=== PATIENT | male | born 1955 | race Caucasian/White ===

== ENCOUNTER → 2021-02-27 | Outpatient (CLI) | payer OTHER ==
[~2021-02-27] MED LIST: ISOVUE-370 76% 100ML VIAL As Ordered ONE
--- NOTE | 2021-02-27 09:14 | REP ---
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 TECHNIQUE: Standard helical technique after the intravenous administration of 100 cc Isovue 370 FINDINGS: There is a borderline to mildly enlarged right hilar lymph node. The mediastinal and left hilar lymph nodes are unremarkable. There are no pleural or pericardial effusions. The imaged upper abdomen is within normal limits. The imaged osseous structures are within normal limits. Evaluation of the lung moura shows evidence of biapical pleuroparenchymal scarring. There is lung field hyperexpansion with emphysematous changes having apical predominance. There is mild cylindrical bronchiectasis. There is an incidental calcified granuloma in the right upper lobe and in the right lower lobe. There are a few calcified right hilar lymph nodes also seen incidentally. There is a small amount of soft tissue density seen in the trachea on the right likely mucoid debris. IMPRESSION: 1. Chronic lung field changes as described above. 2. Borderline to mildly enlarged right hilar lymph node. There are no priors for comparison. Follow-up is suggested. 3. Incidental calcified granulomas. 4. Other findings as described above. <Electronically signed by Дмитрий Benitez > 02/27/21 [id number]
== END ==
LOC: M RAD 08:22
PROVIDERS: ATTEND Internal Medicine Pulmonary Disease
DX: Z57.39 Occupational exposure to other air contaminants (principal); R59.0 Localized enlarged lymph nodes; J43.9 Emphysema, unspecified; J47.9 Bronchiectasis, uncomplicated; J84.10 Pulmonary fibrosis, unspecified
CPT/HCPCS: 71260; Q9967

== ENCOUNTER → 2021-06-28 | Outpatient (CLI) | payer OTHER, MEDICARE ==
[2021-06-28 13:57] LABS: BLOOD UREA NITROGEN 19 MG/DL (7-18); CALCIUM LEVEL 9.6 MG/DL (8.8-10.2); CARBON DIOXIDE LEVEL 27 MEQ/L (21-32); CHLORIDE LEVEL 106 MEQ/L (98-107); CREATININE FOR GFR 1.09 MG/DL (0.70-1.30); GLOMERULAR FILTRATION RATE > 60.0 (>49); GLUCOSE, FASTING 97 MG/DL (70-100); POTASSIUM SERUM 4.3 MEQ/L (3.5-5.1); SODIUM LEVEL 139 MEQ/L (136-145)
== END ==
LOC: M PLALAB 10:44
PROVIDERS: ATTEND Physician Assistant
DX: I10 Essential (primary) hypertension (principal)

== ENCOUNTER → 2021-07-15 | Outpatient (REF) | payer OTHER ==
[2021-07-15 16:44] LABS: BASO # 0.1 10^3/uL (0.0-0.2); BASO % 1.5 % (0.0-1.0); EOS # 0.1 10^3/uL (0.0-0.5); EOS % 1.1 % (0.0-3.0); HEMOGLOBIN 16.6 g/dl (13.5-17.5); LYMPH # 1.4 10^3/uL (1.5-5.0); LYMPH % 18.6 % (24.0-44.0); MEAN CORPUSCULAR HEMOGLOBIN 30.4 pg (27.0-33.0); MEAN CORPUSCULAR HGB CONC 33.9 g/dl (32.0-36.5); MEAN CORPUSCULAR VOLUME 89.7 fl (80.0-96.0); MONO # 0.7 10^3/uL (0.0-0.8); MONO % 9.2 % (2.0-8.0); NEUTROPHILS # 5.1 10^3/uL (1.5-8.5); NEUTROPHILS % 69.3 % (36.0-66.0); PLATELET COUNT, AUTOMATED 253 10^3/uL (150-450); RED BLOOD COUNT 5.46 10^6/uL (4.30-6.10); WHITE BLOOD COUNT 7.3 10^3/uL (4.0-10.0)
[2021-07-15 17:13] LABS: CHOLESTEROL RISK RATIO 4.086 (<5)
== END ==
LOC: M SFHCCLAY 10:34
PROVIDERS: ATTEND Family Medicine
DX: Z13.220 Encounter for screening for lipoid disorders (principal); Z12.5 Encounter for screening for malignant neoplasm of prostate; Z13.0 Encounter for screening for diseases of the blood and blood-forming organs and certain disorders involving the immune mechanism
CPT/HCPCS: 80061; 83540; 85025; G0103

== ENCOUNTER → 2022-07-18 | Outpatient (REF) | payer MEDICARE ==
[2022-07-18 18:00] LABS: BASO # 0.1 10^3/uL (0.0-0.2); BASO % 1.5 % (0.0-1.0); EOS # 0.1 10^3/uL (0.0-0.5); EOS % 1.6 % (0.0-3.0); HEMATOCRIT 46.7 % (42.0-52.0); HEMOGLOBIN 15.5 g/dl (13.5-17.5); LYMPH # 1.4 10^3/uL (1.5-5.0); LYMPH % 20.5 % (24.0-44.0); MEAN CORPUSCULAR HEMOGLOBIN 30.2 pg (27.0-33.0); MEAN CORPUSCULAR HGB CONC 33.2 g/dl (32.0-36.5); MEAN CORPUSCULAR VOLUME 90.9 fl (80.0-96.0); MONO # 0.6 10^3/uL (0.0-0.8); MONO % 9.2 % (2.0-8.0); NEUTROPHILS # 4.5 10^3/uL (1.5-8.5); NEUTROPHILS % 66.8 % (36.0-66.0); PLATELET COUNT, AUTOMATED 234 10^3/uL (150-450); RED BLOOD COUNT 5.14 10^6/uL (4.30-6.10); WHITE BLOOD COUNT 6.7 10^3/uL (4.0-10.0)
[2022-07-18 19:08] LABS: ALBUMIN 3.9 GM/DL (3.2-5.2); ALT/SGPT 32 U/L (12-78); BILIRUBIN,TOTAL 1.3 MG/DL (0.2-1.0); BLOOD UREA NITROGEN 20 MG/DL (7-18); CALCIUM LEVEL 9.2 MG/DL (8.8-10.2); CARBON DIOXIDE LEVEL 26 MEQ/L (21-32); CHLORIDE LEVEL 104 MEQ/L (98-107); CHOLESTEROL LEVEL 213 MG/DL (<200); CHOLESTEROL RISK RATIO 3.491 (<5); CREATININE FOR GFR 1.08 MG/DL (0.70-1.30); GLOMERULAR FILTRATION RATE > 60.0 (>49); GLUCOSE, FASTING 97 MG/DL (70-100); HDL CHOLESTEROL 61 MG/DL (>40); LDL CHOLESTEROL 127 MG/DL (<100); NON-HDL-C 152 MG/DL; POTASSIUM SERUM 4.2 MEQ/L (3.5-5.1); SODIUM LEVEL 138 MEQ/L (136-145); TOTAL PROTEIN 7.1 GM/DL (6.4-8.2); TRIGLYCERIDES LEVEL 124 MG/DL (<150)
== END ==
LOC: M SFHCCLAY 14:05
PROVIDERS: ATTEND Family Medicine
DX: E78.2 Mixed hyperlipidemia (principal); I50.32 Chronic diastolic (congestive) heart failure; I11.0 Hypertensive heart disease with heart failure

== ENCOUNTER → 2022-12-29 | Outpatient (CLI) | payer OTHER | LOC: M RAD 08:46 | PROVIDERS: ATTEND Internal Medicine Pulmonary Disease | DX: R91.8 Other nonspecific abnormal finding of lung field (principal); Z57.39 Occupational exposure to other air contaminants; J44.9 Chronic obstructive pulmonary disease, unspecified; J84.10 Pulmonary fibrosis, unspecified; I25.10 Atherosclerotic heart disease of native coronary artery without angina pectoris; M41.9 Scoliosis, unspecified ==

== ENCOUNTER → 2023-01-27 | Outpatient (CLI) | payer OTHER ==
[~2023-01-27] MED LIST changes: +ALBU6.7H6 INH; +AMLO1TAB24 PO; +AMLO25TA PO; +IPRA0.00 INH; -ISOVUE-370 76% 100ML VIAL As Ordered ONE; +LOSA100T46 PO; +MELA10CA6 PO; +TREL1AER INH; +VITMTA PO
[2023-01-27 11:20] LABS: PLATELET COUNT, AUTOMATED 255 10^3/uL (150-450)
[2023-01-27 11:29] LABS: INR 0.95; PARTIAL THROMBOPLASTIN TIME 26.4 SECONDS (24.8-34.2); PROTHROMBIN TIME 12.9 SECONDS (12.5-14.5)
== END ==
LOC: M LAB 10:15
PROVIDERS: ATTEND Internal Medicine Pulmonary Disease
DX: R91.8 Other nonspecific abnormal finding of lung field (principal)

== ENCOUNTER 2023-01-28 12:50 | Inpatient (IN) | payer OTHER ==
[2023-01-28] VITALS (24 sets, daily range): BP systolic 114–179; BP diastolic 57–114; O2SAT 91–97
[~2023-01-28] VITALS: Ht 165.1 cm; Wt 65.3 kg
[~2023-01-28 12:50] MED LIST changes: -HOME MED LIST COMPLETE! XX SCH; -IPRA0.00 INH; -KETOROLAC 30 MG/ML 1ML VIAL As Ordered ONE; -LIDOCAINE 1% MDV 20ML VIAL As Ordered ONE; -LIDOCAINE 2% MDV 20ML VIAL As Ordered ONE; -MELA10CA6 PO; -MIDAZOLAM INJ 2MG/2ML VIAL As Ordered ONE; +MOM 30ML SUSPENSION UDC PO SCH; -MORPHINE 10 MG/ML 1ML VIAL As Ordered ONE
[2023-01-28] MEDS: MORPHINE 4 MG/ML 1ML VIAL IV ONE ×2 (14:07→16:55)
[2023-01-28] MEDS ORDERED: LEVALBUTEROL 1.25MG/3ML NEB SOLN NEB PRN (14:10)
[2023-01-28] MEDS ORDERED: KCL 20MEQ IN D5/NS 1000ML 1,000 ML IV SCH (14:10)
[2023-01-28] MEDS ORDERED: KETOROLAC 30 MG/ML 1ML VIAL IV SCH (14:10)
[2023-01-28] MEDS ORDERED: BISACODYL 10MG SUPP PR PRN (14:10)
[2023-01-28] MEDS ORDERED: ONDANSETRON 4MG 2ML VIAL IV PRN (14:10)
[2023-01-28] MEDS ORDERED: PERCOCET 5MG/325MG TAB PO PRN ×2 (14:10)
[2023-01-28] MEDS ORDERED: IPRA0.00 INH (14:25)
[2023-01-28] MEDS ORDERED: MELA10CA6 PO (14:25)
[2023-01-28] MEDS ORDERED: HOME MED LIST COMPLETE! XX SCH (14:30)
[2023-01-28] MEDS: LEVALBUTEROL 1.25MG/3ML NEB SOLN NEB SCH ×2 (16:00→20:05)
[2023-01-28] MEDS: PANTOPRAZOLE 40MG TAB (PROTONIX) PO SCH (16:37)
[2023-01-28 16:38] LABS: BASO # 0.1 10^3/uL (0.0-0.2); BASO % 0.8 % (0.0-1.0); EOS # 0.1 10^3/uL (0.0-0.5); EOS % 0.7 % (0.0-3.0); HEMATOCRIT 49.7 % (42.0-52.0); HEMOGLOBIN 15.8 g/dl (13.5-17.5); HEMOGLOBIN 16.7 g/dl (13.5-17.5); LYMPH % 12.4 % (24.0-44.0); MEAN CORPUSCULAR HEMOGLOBIN 29.7 pg (27.0-33.0); MEAN CORPUSCULAR HEMOGLOBIN 30.1 pg (27.0-33.0); MEAN CORPUSCULAR HGB CONC 33.6 g/dl (32.0-36.5); MEAN CORPUSCULAR VOLUME 88.3 fl (80.0-96.0); MEAN CORPUSCULAR VOLUME 89.7 fl (80.0-96.0); MONO # 0.7 10^3/uL (0.0-0.8); MONO % 8.5 % (2.0-8.0); NEUTROPHILS # 5.9 10^3/uL (1.5-8.5); NEUTROPHILS % 77.2 % (36.0-66.0); PLATELET COUNT, AUTOMATED 251 10^3/uL (150-450); PLATELET COUNT, AUTOMATED 255 10^3/uL (150-450); RED BLOOD COUNT 5.32 10^6/uL (4.30-6.10); RED BLOOD COUNT 5.54 10^6/uL (4.30-6.10); WHITE BLOOD COUNT 7.7 10^3/uL (4.0-10.0)
[2023-01-28 16:49] LABS: INR 1.02; PROTHROMBIN TIME 13.6 SECONDS (12.5-14.5)
[2023-01-28 17:02] LABS: ALBUMIN 3.8 G/DL (3.2-5.2); ALKALINE PHOSPHATASE 72 U/L (46-116); ALT/SGPT 14 U/L (7.0-40); AST/SGOT 14 U/L (<34); BILIRUBIN,TOTAL 1.1 MG/DL (0.3-1.2); BLOOD UREA NITROGEN 19 MG/DL (9-23); CALCIUM LEVEL 9.1 MG/DL (8.3-10.6); CARBON DIOXIDE LEVEL 26 MMOL/L (20-31); CHLORIDE LEVEL 106 MMOL/L (98-107); CREATININE FOR GFR 1.03 MG/DL (0.70-1.30); GLOMERULAR FILTRATION RATE > 60.0 (>49); GLUCOSE, FASTING 79 MG/DL (74-106); SODIUM LEVEL 138 MMOL/L (136-145); TOTAL PROTEIN 6.7 G/DL (5.7-8.2)
[2023-01-28] MEDS ORDERED: RAMELTEON 8 MG TAB (ROZEREM) PO PRN (17:15)
[2023-01-28] MEDS: SYMBICORT 80/4.5MCG INHALER 6GM INH SCH (20:05)
[2023-01-28] MEDS: DOCUSATE SODIUM 100MG CAPSULE PO SCH (21:00)
[2023-01-28] MEDS: amLODIPine 5 MG TAB PO SCH (21:15)
[2023-01-28] MEDS: LOSARTAN 50MG TABLET PO SCH (21:15)
[2023-01-28] MEDS: ACETAMINOPHEN TAB 650MG DOSE (2X325MG) PO PRN (21:16)
[2023-01-29] VITALS (23 sets, daily range): BP systolic 124–146; BP diastolic 72–88; O2SAT 86–96
[2023-01-29] MEDS: LEVALBUTEROL 1.25MG/3ML NEB SOLN NEB SCH ×4 (01:28→19:35)
[2023-01-29 06:05] LABS: ABG BASE EXCESS 0.2 (-2.0-2.0); ABG HCO3 24.9 MMOL/L (22.0-26.0); ABG O2 SATURATION 96.7 % (95.0-99.0); ABG PARTIAL PRESSURE CO2 40.8 mmHg (35.0-45.0); ABG PARTIAL PRESSURE O2 85.9 mmHg (75.0-100.0); ABG STANDARD HCO3 24.6 MMOL/L. (22.0-26.0); ABG TOTAL CO2 26.2 MMOL/L (23.0-31.0); ABG pH (ARTERIAL) 7.404 UNITS (7.350-7.450)
[2023-01-29] MEDS: ACETAMINOPHEN TAB 650MG DOSE (2X325MG) PO PRN (06:14)
[2023-01-29 06:26] LABS: BLOOD UREA NITROGEN 20 MG/DL (9-23); CALCIUM LEVEL 8.9 MG/DL (8.3-10.6); CARBON DIOXIDE LEVEL 23 MMOL/L (20-31); CHLORIDE LEVEL 105 MMOL/L (98-107); CREATININE FOR GFR 1.02 MG/DL (0.70-1.30); GLOMERULAR FILTRATION RATE > 60.0 (>49); GLUCOSE, FASTING 118 MG/DL (74-106); POTASSIUM SERUM 4.4 MMOL/L (3.5-5.1); SODIUM LEVEL 138 MMOL/L (136-145)
[2023-01-29 06:43] LABS: BASO # 0.1 10^3/uL (0.0-0.2); BASO % 0.9 % (0.0-1.0); EOS # 0.1 10^3/uL (0.0-0.5); EOS % 1.4 % (0.0-3.0); HEMATOCRIT 43.6 % (42.0-52.0); LYMPH % 14.3 % (24.0-44.0); MEAN CORPUSCULAR HEMOGLOBIN 29.6 pg (27.0-33.0); MEAN CORPUSCULAR HGB CONC 32.6 g/dl (32.0-36.5); MONO # 0.7 10^3/uL (0.0-0.8); MONO % 10.5 % (2.0-8.0); NEUTROPHILS % 72.6 % (36.0-66.0); PLATELET COUNT, AUTOMATED 235 10^3/uL (150-450); RED BLOOD COUNT 4.79 10^6/uL (4.30-6.10); WHITE BLOOD COUNT 6.9 10^3/uL (4.0-10.0)
[2023-01-29 06:48] LABS: HEMOGLOBIN 14.2 g/dl (13.5-17.5)
[2023-01-29] MEDS: SYMBICORT 80/4.5MCG INHALER 6GM INH SCH ×2 (07:15→19:35)
[2023-01-29] MEDS: TIOTROPIUM INHALER/CAPSULE (SPIRIVA) INH SCH (07:15)
[2023-01-29] MEDS: DOCUSATE SODIUM 100MG CAPSULE PO SCH ×2 (09:56→20:57)
[2023-01-29] MEDS: PANTOPRAZOLE 40MG TAB (PROTONIX) PO SCH (09:57)
[2023-01-29] MEDS: ENOXAPARIN 40MG/0.4ML SYRINGE (J1650 PER 10MG) SC SCH (09:57)
[2023-01-29] MEDS: LOSARTAN 50MG TABLET PO SCH (20:56)
[2023-01-29] MEDS: amLODIPine 5 MG TAB PO SCH (20:57)
[2023-01-29] MEDS: KETOROLAC 30 MG/ML 1ML VIAL IV PRN (20:58)
[2023-01-30] VITALS (11 sets, daily range): BP systolic 131–149; BP diastolic 62–90; O2SAT 94–96
[2023-01-30] MEDS: LEVALBUTEROL 1.25MG/3ML NEB SOLN NEB SCH ×3 (01:05→13:38)
[2023-01-30] MEDS: KETOROLAC 30 MG/ML 1ML VIAL IV PRN (04:50)
[2023-01-30 06:14] LABS: BASO # 0.1 10^3/uL (0.0-0.2); EOS # 0.1 10^3/uL (0.0-0.5); EOS % 1.4 % (0.0-3.0); HEMOGLOBIN 14.3 g/dl (13.5-17.5); LYMPH # 1.1 10^3/uL (1.5-5.0); LYMPH % 14.3 % (24.0-44.0); MEAN CORPUSCULAR HEMOGLOBIN 29.7 pg (27.0-33.0); MEAN CORPUSCULAR HGB CONC 32.5 g/dl (32.0-36.5); MEAN CORPUSCULAR VOLUME 91.5 fl (80.0-96.0); MONO # 0.8 10^3/uL (0.0-0.8); MONO % 10.4 % (2.0-8.0); NEUTROPHILS # 5.5 10^3/uL (1.5-8.5); NEUTROPHILS % 72.4 % (36.0-66.0); PLATELET COUNT, AUTOMATED 260 10^3/uL (150-450); RED BLOOD COUNT 4.81 10^6/uL (4.30-6.10); WHITE BLOOD COUNT 7.6 10^3/uL (4.0-10.0)
[2023-01-30 06:38] LABS: BLOOD UREA NITROGEN 17 MG/DL (9-23); CALCIUM LEVEL 9.2 MG/DL (8.3-10.6); CARBON DIOXIDE LEVEL 28 MMOL/L (20-31); CHLORIDE LEVEL 105 MMOL/L (98-107); CREATININE FOR GFR 0.99 MG/DL (0.70-1.30); GLOMERULAR FILTRATION RATE > 60.0 (>49); GLUCOSE, FASTING 97 MG/DL (74-106); POTASSIUM SERUM 4.4 MMOL/L (3.5-5.1); SODIUM LEVEL 140 MMOL/L (136-145)
[2023-01-30] MEDS: DOCUSATE SODIUM 100MG CAPSULE PO SCH (08:43)
[2023-01-30] MEDS: PANTOPRAZOLE 40MG TAB (PROTONIX) PO SCH (08:44)
[2023-01-30] MEDS: ENOXAPARIN 40MG/0.4ML SYRINGE (J1650 PER 10MG) SC SCH (08:45)
[2023-01-30] MEDS: TIOTROPIUM INHALER/CAPSULE (SPIRIVA) INH SCH (08:47)
[2023-01-30] MEDS: SYMBICORT 80/4.5MCG INHALER 6GM INH SCH (08:48)
== END 2023-01-30 16:35 | disposition home or self-care (01) | DRG 143 ==
LOC: M PCU 14:50
PROVIDERS: ADMIT Internal Medicine; ATTEND Internal Medicine
PROC: 0W9930Z Drainage of Right Pleural Cavity with Drainage Device, Percutaneous Approach (ICD-10-PCS; principal; 2023-01-28)
DX: J95.811 Postprocedural pneumothorax (principal); R64 Cachexia; J44.9 Chronic obstructive pulmonary disease, unspecified; C34.11 Malignant neoplasm of upper lobe, right bronchus or lung; I10 Essential (primary) hypertension; I25.10 Atherosclerotic heart disease of native coronary artery without angina pectoris; K21.9 Gastro-esophageal reflux disease without esophagitis; Z79.899 Other long term (current) drug therapy; Z88.2 Allergy status to sulfonamides; Z87.891 Personal history of nicotine dependence

== ENCOUNTER → 2023-01-28 | Outpatient (CLI) | payer OTHER ==
[~2023-01-28] MED LIST changes: +HOME MED LIST COMPLETE! XX SCH; +KETOROLAC 30 MG/ML 1ML VIAL As Ordered ONE; +LIDOCAINE 1% MDV 20ML VIAL As Ordered ONE; +LIDOCAINE 2% MDV 20ML VIAL As Ordered ONE; +MIDAZOLAM INJ 2MG/2ML VIAL As Ordered ONE; +MORPHINE 10 MG/ML 1ML VIAL As Ordered ONE
[2023-01-28 13:00] VITALS: BP 154/105
== END ==
LOC: M IRPRO 08:18
PROVIDERS: ATTEND Internal Medicine Pulmonary Disease
DX: C34.11 Malignant neoplasm of upper lobe, right bronchus or lung (principal); R91.8 Other nonspecific abnormal finding of lung field; J95.811 Postprocedural pneumothorax
CPT/HCPCS: 32408; 88305; J1885; J2250

== ENCOUNTER → 2023-03-02 | Outpatient (CLI) | payer OTHER ==
[~2023-03-02] MED LIST changes: +IPRA0.00 INH; +MELA10CA6 PO; -MOM 30ML SUSPENSION UDC PO SCH
== END ==
LOC: M PLARAD 15:02
PROVIDERS: ATTEND Thoracic Surgery (Cardiothoracic Vascular Surgery)
DX: C78.01 Secondary malignant neoplasm of right lung (principal); J43.9 Emphysema, unspecified; I65.23 Occlusion and stenosis of bilateral carotid arteries; I70.0 Atherosclerosis of aorta; I25.10 Atherosclerotic heart disease of native coronary artery without angina pectoris; R93.0 Abnormal findings on diagnostic imaging of skull and head, not elsewhere classified
CPT/HCPCS: 78815; A9552

== ENCOUNTER → 2023-03-04 | Outpatient (CLI) | payer OTHER | LOC: M ONCR 13:14 | PROVIDERS: ATTEND General Practice | DX: C34.11 Malignant neoplasm of upper lobe, right bronchus or lung (principal); Z87.891 Personal history of nicotine dependence; J44.9 Chronic obstructive pulmonary disease, unspecified; I10 Essential (primary) hypertension; Z71.2 Person consulting for explanation of examination or test findings; Z72.89 Other problems related to lifestyle; Z79.51 Long term (current) use of inhaled steroids; Z79.899 Other long term (current) drug therapy; Z80.0 Family history of malignant neoplasm of digestive organs; Z80.1 Family history of malignant neoplasm of trachea, bronchus and lung; Z88.1 Allergy status to other antibiotic agents; Z88.2 Allergy status to sulfonamides ==

== ENCOUNTER → 2023-08-06 | Outpatient (RCR) | payer OTHER | LOC: M ONCR 07-16 10:17 | PROVIDERS: ATTEND General Practice | DX: Z51.0 Encounter for antineoplastic radiation therapy (principal); C34.11 Malignant neoplasm of upper lobe, right bronchus or lung ==

== ENCOUNTER 2023-08-07 14:07 | Outpatient (RCR) | payer OTHER | END 2023-09-06 | LOC: M ONCR 14:07 | PROVIDERS: ATTEND General Practice | DX: C34.11 Malignant neoplasm of upper lobe, right bronchus or lung (principal) ==

== ENCOUNTER → 2023-11-19 | Outpatient (CLI) | payer MEDICARE, OTHER, SELFPAY ==
[~2023-11-19] MED LIST changes: +ISOVUE-370 76% 100ML VIAL As Ordered ONE
== END ==
LOC: M RAD 08:21
PROVIDERS: ATTEND General Practice
DX: C34.11 Malignant neoplasm of upper lobe, right bronchus or lung (principal); J84.10 Pulmonary fibrosis, unspecified
CPT/HCPCS: 71260; Q9967

== ENCOUNTER → 2024-10-24 | Outpatient (CLI) | payer OTHER, MEDICARE ==
[~2024-10-24] MED LIST changes: -ISOVUE-370 76% 100ML VIAL As Ordered ONE
== END ==
LOC: M PLAIMG 10:12
PROVIDERS: ATTEND Internal Medicine Pulmonary Disease
DX: Z57.39 Occupational exposure to other air contaminants (principal); R91.8 Other nonspecific abnormal finding of lung field; J43.9 Emphysema, unspecified; J84.10 Pulmonary fibrosis, unspecified

== ENCOUNTER → 2025-04-03 | Outpatient (CLI) | payer MEDICARE | LOC: M CLY 14:37 | PROVIDERS: ATTEND Family Medicine | DX: J18.9 Pneumonia, unspecified organism (principal) ==

== ENCOUNTER → 2025-04-03 | Outpatient (CLI) | payer MEDICARE | LOC: M CLY 15:00 | PROVIDERS: ATTEND Family Medicine | DX: Z53.9 Procedure and treatment not carried out, unspecified reason (principal) ==

== ENCOUNTER 2025-08-23 07:08 | Inpatient (IN) | payer OTHER, MEDICARE ==
[~2025-08-23] VITALS: Ht 167.6 cm; Wt 61.0 kg
[2025-08-23] MEDS: IPRATROPIUM 0.5 MG/ALBUTEROL 2.5 MG INH SOL UD 3 ML NEB PRN (07:22)
[2025-08-23 07:41] LABS: VENOUS BASE EXCESS -2.6 (-2.0-2.0); VENOUS HCO3 27.7 MMOL/L (23.0-27.0); VENOUS O2 SATURATION 94.6 % (60.0-80.0); VENOUS PARTIAL PRESSURE CO2 72.9 mmHg (38.0-50.0); VENOUS PARTIAL PRESSURE O2 81.2 mmHg (30.0-50.0); VENOUS PH 7.198 UNITS (7.330-7.430); VENOUS STANDARD HCO3 22.3 MMOL/L; VENOUS TOTAL CO2 30.0 MMOL/L (24.0-28.0)
[2025-08-23 07:48] LABS: BASO # 0.1 10^3/uL (0.0-0.2); BASO % 0.4 % (0.0-1.0); EOS # 0.0 10^3/uL (0.0-0.5); EOS % 0.2 % (0.0-3.0); LYMPH # 0.5 10^3/uL (1.5-5.0); LYMPH % 3.7 % (24.0-44.0); MONO # 0.8 10^3/uL (0.0-0.8); MONO % 6.0 % (2.0-8.0); NEUTROPHILS # 12.3 10^3/uL (1.5-8.5); NEUTROPHILS % 88.8 % (36.0-66.0); PLATELET COUNT, AUTOMATED 274 10^3/uL (150-450)
[2025-08-23 08:05] LABS: ABG BASE EXCESS -4.1 (-2.0-2.0); ABG HCO3 24.2 MMOL/L (22.0-26.0); ABG O2 SATURATION 98.5 % (95.0-99.0); ABG PARTIAL PRESSURE CO2 57.5 mmHg (35.0-45.0); ABG PARTIAL PRESSURE O2 144.7 mmHg (75.0-100.0); ABG STANDARD HCO3 21.1 MMOL/L. (22.0-26.0); ABG TOTAL CO2 26.0 MMOL/L (23.0-31.0)
[2025-08-23 08:06] LABS: ABG pH (ARTERIAL) 7.242 UNITS (7.350-7.450)
[2025-08-23 08:09] LABS: INR 0.94
[2025-08-23 08:20] LABS: ALT/SGPT 14 U/L (7.0-40); AST/SGOT 18 U/L (<34); CALCIUM LEVEL 8.9 MG/DL (8.3-10.6); CARBON DIOXIDE LEVEL 29 MMOL/L (20-31); CHLORIDE LEVEL 100 MMOL/L (98-107); CREATININE FOR GFR 0.88 MG/DL (0.70-1.30); GLOMERULAR FILTRATION RATE > 90.0 (>49); POTASSIUM SERUM 4.2 MMOL/L (3.5-5.1); SODIUM LEVEL 140 MMOL/L (136-145)
[2025-08-23] MEDS: OSELTAMIVIR PHOSPHATE 75 MG CAP PO ONE (08:57)
[2025-08-23] MEDS ORDERED: MULTTAB61 PO (09:06)
[2025-08-23] MEDS ORDERED: PRED10TA2 PO (09:06)
[2025-08-23] MEDS ORDERED: VENTAER INH (09:06)
[2025-08-23] MEDS ORDERED: HOME MED LIST COMPLETE! XX SCH (09:10)
[2025-08-23 10:06] LABS: ABG BASE EXCESS -2.1 (-2.0-2.0); ABG HCO3 25.0 MMOL/L (22.0-26.0); ABG O2 SATURATION 99.1 % (95.0-99.0); ABG PARTIAL PRESSURE CO2 51.6 mmHg (35.0-45.0); ABG PARTIAL PRESSURE O2 155.3 mmHg (75.0-100.0); ABG STANDARD HCO3 22.8 MMOL/L. (22.0-26.0); ABG TOTAL CO2 26.6 MMOL/L (23.0-31.0); ABG pH (ARTERIAL) 7.303 UNITS (7.350-7.450)
[2025-08-23 11:11] LABS: D-DIMER QUANT 1.03 ug/mL (<0.5)
[2025-08-23] MEDS ORDERED: ISOVUE-370 76% 100 ML VIAL As Ordered ONE (12:34)
[2025-08-23] MEDS ORDERED: ALBUTEROL SULFATE 2.5 MG/0.5 ML INH CONCENTRATE NEB SOLN NEB PRN (12:35)
[2025-08-23] MEDS ORDERED: ACETAMINOPHEN 500 MG TAB PO PRN (13:45)
[2025-08-23] MEDS ORDERED: RAMELTEON 8 MG TAB PO PRN (13:50)
[2025-08-23] MEDS: IPRATROPIUM 0.5 MG/ALBUTEROL 2.5 MG INH SOL UD 3 ML NEB SCH (13:57)
[2025-08-23] MEDS: TIOTROPIUM BROM 2.5MCG/ACTUATION 4GM INH INH SCH (16:00)
[2025-08-23 18:00] VITALS: BP 149/74; TEMP 98.6; O2SAT 97
[2025-08-23] MEDS: SYMBICORT 160/4.5MCG INHALER 6GM INH SCH (19:59)
[2025-08-23 20:00] VITALS: BP 142/72; TEMP 98.5; O2SAT 96
[2025-08-23 20:06] VITALS: O2SAT 99
[2025-08-23] MEDS: HEPARIN SOD 5000 UNITS/ML 1 ML VIAL/SYRINGE SC SCH (20:14)
[2025-08-23] MEDS: amLODIPine 5 MG TAB PO SCH (20:15)
[2025-08-23] MEDS: OSELTAMIVIR PHOSPHATE 75 MG CAP PO SCH (20:15)
[2025-08-23] MEDS: LOSARTAN 50 MG TABLET PO SCH (20:15)
[2025-08-23 23:40] VITALS: O2SAT 97
[2025-08-24] VITALS (24 sets, daily range): BP systolic 121–145; BP diastolic 72–93; TEMP 97.6–98.6; O2SAT 89–98
[2025-08-24 05:29] LABS: PLATELET COUNT, AUTOMATED 244 10^3/uL (150-450)
[2025-08-24 05:50] LABS: CALCIUM LEVEL 8.6 MG/DL (8.3-10.6); CARBON DIOXIDE LEVEL 29 MMOL/L (20-31); CHLORIDE LEVEL 101 MMOL/L (98-107); CREATININE FOR GFR 0.82 MG/DL (0.70-1.30); GLOMERULAR FILTRATION RATE > 90.0 (>49); POTASSIUM SERUM 4.3 MMOL/L (3.5-5.1); SODIUM LEVEL 138 MMOL/L (136-145)
[2025-08-24] MEDS: MULTIVITAMINS/MINERALS THERAP 1 TAB PO SCH (08:07)
[2025-08-24] MEDS: AZITHROMYCIN 250 MG TABLET PO SCH (10:37)
[2025-08-25] VITALS (36 sets, daily range): BP systolic 129–162; BP diastolic 75–87; TEMP 97–98.1; O2SAT 86–98
[2025-08-25 05:44] LABS: PLATELET COUNT, AUTOMATED 257 10^3/uL (150-450)
[2025-08-25 05:58] LABS: CALCIUM LEVEL 8.8 MG/DL (8.3-10.6); CARBON DIOXIDE LEVEL 29 MMOL/L (20-31); CHLORIDE LEVEL 99 MMOL/L (98-107); CREATININE FOR GFR 0.85 MG/DL (0.70-1.30); GLOMERULAR FILTRATION RATE > 90.0 (>49); POTASSIUM SERUM 4.3 MMOL/L (3.5-5.1); SODIUM LEVEL 137 MMOL/L (136-145)
[2025-08-26] VITALS (23 sets, daily range): BP systolic 133–139; BP diastolic 74; TEMP 97.1–97.6; O2SAT 85–99
[2025-08-26] MEDS ORDERED: AZITHROMYCIN 250 MG TABLET PO SCH
[2025-08-26] MEDS ORDERED: predniSONE 20 MG TAB PO SCH
[2025-08-26] MEDS ORDERED: OSELTAMIVIR PHOSPHATE 75 MG CAP PO SCH
[2025-08-26 06:03] LABS: PLATELET COUNT, AUTOMATED 248 10^3/uL (150-450)
[2025-08-26 06:23] LABS: CALCIUM LEVEL 8.7 MG/DL (8.3-10.6); CARBON DIOXIDE LEVEL 31 MMOL/L (20-31); CHLORIDE LEVEL 98 MMOL/L (98-107); CREATININE FOR GFR 0.83 MG/DL (0.70-1.30); GLOMERULAR FILTRATION RATE > 90.0 (>49); POTASSIUM SERUM 4.8 MMOL/L (3.5-5.1); SODIUM LEVEL 138 MMOL/L (136-145)
[2025-08-26] MEDS ORDERED: PRED5PAK2 PO (13:51)
[2025-08-26] MEDS ORDERED: OSEL75CA2 PO (13:51)
[2025-08-26] MEDS ORDERED: ACET-683 PO (13:51)
[2025-08-26] MEDS ORDERED: AZIT-12 PO (13:51)
[2025-08-26] MEDS ORDERED: PRED10TA2 PO (15:01)
[2025-08-26] MEDS ORDERED: IPRA0.00 INH (16:07)
[2025-08-26] MEDS ORDERED: ALBU2.5V10 INH (16:07)
[2025-08-26] MEDS ORDERED: PRED20TA PO (16:07)
== END 2025-08-26 17:55 | disposition home or self-care (01) | DRG 133 ==
LOC: M ED 07:08 → EDBD 07:08 → M ED INP 13:46 → M PCU 17:01
PROVIDERS: ADMIT Student in an Organized Health Care Education/Training Program; ATTEND Student in an Organized Health Care Education/Training Program
DX: J96.02 Acute respiratory failure with hypercapnia (principal); J44.1 Chronic obstructive pulmonary disease with (acute) exacerbation; Z99.81 Dependence on supplemental oxygen; R04.2 Hemoptysis; I10 Essential (primary) hypertension; J10.1 Influenza due to other identified influenza virus with other respiratory manifestations; Z87.891 Personal history of nicotine dependence; Z85.118 Personal history of other malignant neoplasm of bronchus and lung; Z92.3 Personal history of irradiation; G47.00 Insomnia, unspecified; Z79.52 Long term (current) use of systemic steroids; Z79.899 Other long term (current) drug therapy; Z88.2 Allergy status to sulfonamides; J96.01 Acute respiratory failure with hypoxia